=== PATIENT | female | born 1990 | race Caucasian/White ===

== ENCOUNTER 2018-10-01 22:43 | Inpatient (IN) | payer BC, MEDICAID ==
[2018-10-01] MEDS ORDERED: fentaNYL 100 MCG/2 ML SDV IV ONE (23:40)
[2018-10-02] MEDS ORDERED: Ondansetron 4 MG/2 ML SDV IVPUSH PRN (00:13)
[2018-10-02] MEDS ORDERED: Nalbuphine 10 MG/1 ML Vial IVPUSH PRN (00:13)
[2018-10-02] MEDS ORDERED: Promethazine 6.25 MG in Sodium Chloride 0.9% 50 ML IV PRN (00:13)
[2018-10-02] MEDS ORDERED: diphenhydrAMINE 50 MG/ML SDV IVPUSH PRN (00:13)
[2018-10-02] MEDS ORDERED: ePHEDrine 50 MG/ML SDV IVPUSH PRN (00:13)
[2018-10-02] MEDS ORDERED: Famotidine/Normal Saline 20 MG in Premix Bag 1 BAG IV PRN (00:13)
[2018-10-02] MEDS ORDERED: Promethazine 12.5 MG in Sodium Chloride 0.9% 50 ML IV PRN (00:13)
[2018-10-02] MEDS ORDERED: Naloxone 0.4 MG/ML SDV IVPUSH PRN (00:13)
[2018-10-02] MEDS ORDERED: diphenhydrAMINE 50 MG/ML SDV IV PRN (00:13)
[2018-10-02] MEDS ORDERED: Lactated Ringers 500 ML IV PRN (00:15)
[2018-10-02] MEDS ORDERED: Lactated Ringers 500 ML IV SCH (00:15)
[2018-10-02] MEDS ORDERED: Oxytocin 10 Units/1 ML SDV IM ONE (00:25)
[2018-10-02] MEDS ORDERED: Acetaminophen/Codeine 300-30 MG Tab PO PRN (00:40)
--- NOTE | 2018-10-02 00:40 | PCM.DEL ---
L & D Note - General Info Date of Service: 10/02/18 - Delivery Note Labor: Spontaneous Delivery Outcome: Livebirth Delivery Method: Spontaneous Vaginal Delivery-Single Presentation: OA Nuchal Cord: Present (x1) Anesthesia Type: Intrathecal Amniotic Fluid Description: Clear Episiotomy Type: None Laceration: None Placenta: Intact, Spontaneous Cord: 3 Vessels Resuscitation Needed: No : Suctioned - General Info Date of Service: 10/02/18 Admission Dx/Problem (Free Text): 7-year-old 38+ weeks comes in on today's labor. She had intact membranes which were a round after she got intrathecal and she was about complete and delivered a healthy baby girl in the straight OA position. One nuchal cord that was reduced. Cord blood was taken placenta was delivered. Blood loss less than 500cc. - Patient Data Vitals - Most Recent: Last Vital Signs Temp 97.5 F 10/01/18 23:03 Pulse 57 L 10/01/18 23:03 Resp 15 10/01/18 23:03 BP 127/99 H 10/01/18 23:03 Pulse Ox 99 10/01/18 23:03 Med Orders - Current: Current Medications Diphenhydramine HCl (Benadryl) 25 mg IVPUSH ASDIRECTED PRN PRN Reason: EXTRAPYRAMIDAL SIDE EFFECTS Diphenhydramine HCl (Benadryl) 25 mg IV ASDIRECTED PRN PRN Reason: PRURITUS Ephedrine Sulfate (Ephedrine Sulfate) 0 mg IVPUSH ASDIRECTED PRN PRN Reason: Hypotension Famotidine 20 mg/ Premix 50 mls @ 100 mls/hr IV ONETIME PRN PRN Reason: PRURITIS Lactated Ringer's (Ringers, Lactated) 500 mls @ 999 mls/hr IV .SEECOMMENT LARA Lactated Ringer's (Ringers, Lactated) 500 mls @ 999 mls/hr IV BOLUS LARA Promethazine HCl 6.25 mg/ (Sodium Chloride) 50.25 mls @ 200 mls/hr IV Q4H PRN PRN Reason: Nausea/Vomiting Promethazine HCl 12.5 mg/ (Sodium Chloride) 50.5 mls @ 200 mls/hr IV Q4H PRN PRN Reason: Nausea/Vomiting Nalbuphine HCl (Nubain) 10 mg IVPUSH Q1H PRN PRN Reason: PRURITUS Naloxone HCl (Narcan) 0.1 mg IVPUSH ASDIRECTED PRN PRN Reason: Respiratory Depression Ondansetron HCl (Zofran) 4 mg IVPUSH Q4H PRN PRN Reason: Nausea/Vomiting - Exam General: Alert, Oriented Lungs: Normal Respiratory Effort Cardiovascular: Regular Rate, Regular Rhythm - Problem List & Annotations (1) Vaginal delivery SNOMED Code(s): 090177677 Code(s): O80 - ENCOUNTER FOR FULL-TERM UNCOMPLICATED DELIVERY Status: Acute Current Visit: Yes (2) Group B Streptococcus not isolated SNOMED Code(s): 038802311 Code(s): TKE2880 - Status: Acute Current Visit: No - Problem List Review Problem List Initiated/Reviewed/Updated: Yes - Plan Plan:: Normal orders. See orders.
[2018-10-02] MEDS: Ibuprofen 800 MG Tab PO SCH ×3 (02:00→17:49)
[2018-10-02 05:27] VITALS: BP 134/84
[2018-10-02] MEDS: Prenatal Multivitamin with Calcium/Folic Acid/Fe Fumarate Cap PO SCH (08:46)
[2018-10-03] MEDS: Ibuprofen 800 MG Tab PO SCH ×2 (00:34→08:32)
[2018-10-03] MEDS: Prenatal Multivitamin with Calcium/Folic Acid/Fe Fumarate Cap PO SCH (08:33)
[2018-10-03] MEDS ORDERED: Measles, Mumps & Rubella Vaccine 0.5 ML SDV SUBCUT ONE (09:00)
--- NOTE | 2018-10-03 15:49 | DISCH ---
DISCHARGE DATE: 10/03/2018 ADMIT DIAGNOSES: 1. Multip, group B negative, in labor. 2. Vaginal delivery, group B negative. REASON FOR HOSPITALIZATION: This 27-year-old female patient, G2, P1, at 38+ weeks comes in labor. Group B negative. Got intrathecal a round with clear fluids. Delivered a healthy baby girl in OA position with 1 nuchal cord and with blood loss minimal, see delivery note. The patient delivered just a little bit after midnight. She wanted to go home a day earlier than normal. She had her hemoglobin dropped, drawn about 12 hours later was 11.6. Vital signs stable. Afebrile. The patient had no problems while she was here. We will discharge her to home. DISCHARGE INSTRUCTIONS: 1. Discharged to home. 2. Recheck in 6 weeks for care. DISCHARGE MEDICATIONS: 1. vitamins once a day. 2. Ibuprofen over the counter. ACTIVITY: As tolerated. DIET: As tolerated. /[id number] PE/MODL
== END 2018-10-03 10:25 | disposition home or self-care (01) | DRG 560 ==
LOC: FB.OBCHECK 22:43 → FB.OB 22:43 → FB.OBCHECK 22:44 → UNDOADMIN 22:45 → FB.OB 22:45
PROVIDERS: ADMIT Family Medicine; ATTEND Family Medicine
PROC: 10E0XZZ Delivery of Products of Conception, External Approach (ICD-10-PCS; principal; 2018-10-02)
PROC: 6A550ZT Pheresis of Cord Blood Stem Cells, Single (ICD-10-PCS; 2018-10-02)
DX: O69.81X0 Labor and delivery complicated by cord around neck, without compression, not applicable or unspecified (principal); Z3A.38 38 weeks gestation of pregnancy; Z37.0 Single live birth
CPT/HCPCS: 36415; 59409; 85014; 85018; 90471; 90707; A9270-GY; J2590; J3010; J3490; J7120